=== PATIENT | female | born 1965 | race African-American/Black ===

== ENCOUNTER 2017-04-19 20:20 | Emergency (ER) | payer OTHER ==
--- NOTE | 2017-04-19 20:25 | PDOC ---
Rapid Medical Evaluation Chief Complaint: Shortness of Breath Time Seen by Provider: 04/19/17 20:22 Medical Evaluation: 04/19/17 20:23 pt c/o: recent URI, now cough and congestion x 1 week, no fever, upper mid chest tightness, had ekg done at dr office which was -. Pt on brief exam: beatriz MENDOZA Pt ordered for : ekg pt to proceed to the ED: Discharge Disposition - Diagnosis Shortness of breath - Referrals - Patient Instructions - Post Discharge Activity
[2017-04-19 20:26] VITALS: BP 136/84; PULSE 88; TEMP 99; BMI 28.5
--- NOTE | 2017-04-19 20:39 | PDOC ---
History of Present Illness - General History Source: Patient Exam Limitations: No Limitations - History of Present Illness Initial Comments: 04/19/17 21:04 The patient is a 51 year old female, with a significant past medical history of thyroidectomy, who presents to the emergency department with, chest tightness and shortness of breath. The patient reports she had a cold for the past 3 weeks and after recovering from the cold began to experience a gradual onset of chest tightness and shortness of breath. The patient reports she has not been taking her thyroid medications and believes that may be contributing to the shortness of breath. The patient also reports she has a productive cough with white cream colored sputum. The patient reports she visited her PMD Dr. Millan on Sunday who advised her to come to the ED for evaluation. The patient reports she did not come to the ED on Sunday but decided to come today as her symptoms have been feeling worse. The patient reports she had an EKG performed at her PCP office and states the EKG was normal. She denies recent palpitations or chest pain. She denies recent calf tenderness or swelling. She denies recent fevers, chills, headache or dizziness. She denies recent nausea, vomit, diarrhea or constipation. She denies recent dysuria , frequency, urgency or hematuria. Allergies: NKA Past surgical history: Thyroidectomy Primary Care Physician: Dr. Millan <Malachi Crocker - Last Filed: 04/19/17 21:04> <Ericka Keller - Last Filed: 04/19/17 23:27> - General Chief Complaint: Shortness of Breath Stated Complaint: SHORTNESS OF BREATH Time Seen by Provider: 04/19/17 20:22 Past History <Malachi Crocker - Last Filed: 04/19/17 21:04> - Past Medical History COPD: No DVT: No Dementia: No Seizures: Yes (hyper) - Immunization History Immunization Up to Date: Yes - Suicide/Smoking/Psychosocial Hx Smoking History: Never smoked Have you smoked in the past 12 months: No Information on smoking cessation initiated: No Hx Alcohol Use: No Drug/Substance Use Hx: No Substance Use Type: None <Ericka Keller - Last Filed: 04/19/17 23:27> - Past Medical History Allergies/Adverse Reactions: Allergies Allergy/AdvReac Type Severity Reaction Status Date / Time No Known Allergies Allergy Verified 04/19/17 20:26 Home Medications: Ambulatory Orders Albuterol Sulfate Inhaler - [Ventolin HFA Inhaler -] 1 - 2 inh PO Q4H PRN #1 inhaler 04/19/17 predniSONE [Deltasone -] 20 mg PO DAILY #4 tablet 04/19/17 Review of Systems - Review of Systems Comments:: 04/19/17 21:05 GENERAL/CONSTITUTIONAL: No fever or chills. No weakness. HEAD, EYES, EARS, NOSE AND THROAT: No change in vision. No ear pain or discharge. No sore throat. GASTROINTESTINAL: No nausea, vomiting, diarrhea or constipation. GENITOURINARY: No dysuria, frequency, or change in urination. CARDIOVASCULAR: +Chest tightness. No chest pain. RESPIRATORY: +Shortness of breath. +Productive cough. No wheezing, or hemoptysis. MUSCULOSKELETAL: No joint or muscle swelling or pain. No neck or back pain. SKIN: No rash NEUROLOGIC: No headache, vertigo, loss of consciousness, or change in strength/ sensation. ENDOCRINE: No increased thirst. No abnormal weight change. HEMATOLOGIC/LYMPHATIC: No anemia, easy bleeding, or history of blood clots. ALLERGIC/IMMUNOLOGIC: No hives or skin allergy. <Malachi Crocker - Last Filed: 04/19/17 21:04> *Physical Exam - Vital Signs Last Vital Signs Temp Pulse Resp BP Pulse Ox 99.0 F 88 18 136/84 100 04/19/17 20:23 04/19/17 20:23 04/19/17 20:23 04/19/17 20:23 04/19/17 20:23 - Physical Exam Comments: 04/19/17 21:05 Constitutional: Non toxic appearing. Awake, alert, oriented. No acute distress. Head: Normocephalic. Atraumatic. Eyes: PERRL. EOMI. Conjunctivae are not pale. ENT: Mucous membranes are moist and intact. Posterior pharynx without exudates or erythema. Uvula midline. Neck: Healed thyroid surgical incision. Supple. Full ROM. No lymphadenopathy. Cardiovascular: Regular rate. Regular rhythm. S1, S2 regular. Distal pulses are 2+ and symmetric. Pulmonary/Chest: +Diminished breath sounds bilaterally. No wheezing, rales or rhonchi. Abdominal: Soft and non-distended. There is no tenderness. No rebound, guarding or rigidity. No organomegaly. No palpable masses. Good bowel sounds. Back: No CVA tenderness. Musculoskeletal: No edema. No cyanosis. No clubbing. Full range of motion in all extremities. No calf tenderness. Radial/pedal pulses are intact and 2+ bilaterally Skin: Skin is warm and dry. No petechiae. No purpura. Neurological: Alert and oriented to person, place, and time. Cranial nerves II -XII are grossly intact. Normal speech. Strength is grossly symmetric. No sensory deficits. Psychiatric: Good eye contact. Normal interaction, affect and behavior. <Malachi Crocker - Last Filed: 04/19/17 21:04> - Vital Signs Last Vital Signs Temp Pulse Resp BP Pulse Ox 99.0 F 88 18 136/84 100 04/19/17 20:23 04/19/17 20:23 04/19/17 20:23 04/19/17 20:23 04/19/17 20:23 <Ericka Keller - Last Filed: 04/19/17 23:27> Heart Score/ECG Review - ECG Intrepretation Comment:: 04/19/17 21:01 sinus at 78, nl axis, nl interval, no acute st/t wave findings <Ericka Keller - Last Filed: 04/19/17 23:27> ED Treatment Course - Medications Given in the ED: ED Medications Discontinued Medications Generic Name Dose Route Start Last Admin Trade Name Freq PRN Reason Stop Dose Admin Albuterol/Ipratropium 1 amp 04/19/17 20:51 04/19/17 20:56 Duoneb - NEB 04/19/17 20:52 1 amp ONCE ONE Administration Sodium Chloride 1,000 ml 04/19/17 20:51 04/19/17 20:56 Normal Saline - IV 04/19/17 20:52 1,000 ml ONCE ONE Administration <Malachi Crocker - Last Filed: 04/19/17 21:04> - LABORATORY CBC & Chemistry Diagram: 04/19/17 21:15 04/19/17 21:15 <Ericka Keller - Last Filed: 04/19/17 23:27> Medical Decision Making - Medical Decision Making 04/19/17 20:58 51yo female presents ambulatory for chest tightness x 2 weeks -had viral uri for 3 weeks prior to chest tightness -still with cough - productive white sputum -no fevers -states difficulty breathing -diminished bs on exam, suspect reactive airway disease after recent viral URI -will check labs, ekg, cxr -nebs, ivf hydration, monitor and reasssess -ucg 04/19/17 23:23 re-eval cxr negative pt feeling better labs reviewed lungs cta on exam will give inhaler and steroids to help with RAD pt has appt with PMD for next sunday discussed all reasons to return to the Ed and need for follow up with PMD. Pt stable for d/c to home. <Ericka Keller - Last Filed: 04/19/17 23:27> *DC/Admit/Observation/Transfer - Attestations Scribe Attestion: 04/19/17 21:06 Documentation prepared by Malachi Crocker, acting as medical office assistant for Ericka Keller DO. <Malachi Crocker - Last Filed: 04/19/17 21:04> - Discharge Dispostion Admit: No - Attestations Physician Attestion: 04/19/17 23:27 I, Dr. Ericka Keller DO, attest that this document has been prepared under my direction and personally reviewed by me in its entirety. I further attest, that it accurately reflects all work, treatment, procedures and medical decision -making performed by me. <Ericka Keller - Last Filed: 04/19/17 23:27> Diagnosis at time of Disposition: Reactive airway disease - Discharge Dispostion Disposition: HOME Condition at time of disposition: Stable - Prescriptions Prescriptions: Albuterol Sulfate Inhaler - [Ventolin HFA Inhaler -] 1 - 2 inh PO Q4H PRN #1 inhaler PRN Reason: Short Of Breath/Wheezing predniSONE [Deltasone -] 20 mg PO DAILY #4 tablet - Referrals Referrals: Danny Agosto [Non Staff, Medical] - - Patient Instructions Printed Discharge Instructions: DI for Reactive Airway Disease-Adult Additional Instructions: Please take all meds as prescribed. Please keep your appointment with your PMD. Please return to the ED with any further complaints.
[2017-04-19] MEDS ORDERED: ALBUTEROL SO4 2.5/IPRATROPIUM 0.5 INH SOL 3 ML VIAL.NEB. NEB ONE ×2 (20:51→23:20)
[2017-04-19] MEDS ORDERED: SODIUM CHLORIDE 0.9% 1000 ML INFUS.BAG IV ONE (20:51)
[2017-04-19] MEDS ORDERED: ACETAMINOPHEN 325 MG TABLET (FP) PO ONE (21:01)
[2017-04-19] MEDS ORDERED: predniSONE 20 MG TABLET (UD) PO ONE (21:01)
[2017-04-19 21:27] LABS: BASO % 2.2 % (0-2.0); HEMATOCRIT 36.3 % (32.4-45.2); HEMOGLOBIN 12.2 GM/dL (10.7-15.3); LYMPH % 47.7 % (8-40); MCH 30.8 pg (25.7-33.7); MCHC 33.6 g/dl (32.0-36.0); MEAN CELL VOLUME 91.5 fl (80-96); MEAN PLT VOLUME 8.7 fl (7.5-11.1); MONO % 6.2 % (3.8-10.2); NEUT % 41.9 % (42.8-82.8); PLATELET COUNT 243 K/MM3 (134-434); RBC 3.97 M/mm3 (3.60-5.2); WHITE BLOOD COUNT 5.6 K/mm3 (4.0-10.0)
[2017-04-19 22:01] LABS: ANION GAP 8 (8-16); BILIRUBIN,TOTAL 0.4 mg/dL (0.2-1.0); BLOOD UREA NITROGEN 9 mg/dL (7-18); CALCIUM 8.3 mg/dL (8.5-10.1); CHLORIDE 104 mmol/L (98-107); CO2 25 mmol/L (21-32); CREATININE 0.7 mg/dL (0.55-1.02); GLUCOSE,RANDOM 90 mg/dL (74-106); POTASSIUM 3.9 mmol/L (3.5-5.1); SGOT/AST 19 U/L (15-37); SGPT/ALT 23 U/L (12-78); SODIUM 137 mmol/L (136-145); TOT PROT 7.8 g/dl (6.4-8.2)
[2017-04-19 22:09] LABS: ALK PHOS 63 U/L (45-117)
--- NOTE | 2017-04-21 12:17 | EKG ---
Test Reason : Blood Pressure : / mmHG Vent. Rate : 078 BPM Atrial Rate : 078 BPM P-R Int : 192 ms QRS Dur : 088 ms QT Int : 370 ms P-R-T Axes : 066 059 056 degrees QTc Int : 421 ms NORMAL SINUS RHYTHM POSSIBLE LEFT ATRIAL ENLARGEMENT BORDERLINE ECG WHEN COMPARED WITH ECG OF 28-APR-2009 09:25, OR INTERVAL HAS DECREASED Confirmed by ISABEL COOPER MD ([id number]) on 04/21/2017 12:17:41 PM Referred By: Confirmed By:ISABEL COOPER MD
== END 2017-04-19 23:45 | disposition home or self-care (01) ==
LOC: JER 20:20
PROC: 3E0F7GC Introduction of Other Therapeutic Substance into Respiratory Tract, Via Natural or Artificial Opening (ICD-10-PCS; principal; 2017-04-19)
PROC: 3E0F7GC Introduction of Other Therapeutic Substance into Respiratory Tract, Via Natural or Artificial Opening (ICD-10-PCS; 2017-04-19)
DX: J45.909 Unspecified asthma, uncomplicated (principal)
CPT/HCPCS: 36415; 71046-TC-FY; 80053; 82550; 82553; 84443; 84484; 84703; 85025; 93005; 93010; 99282-25

== ENCOUNTER → 2017-04-19 | Emergency (ER) | payer BC, OTHER ==
[~2017-04-19] MED LIST: ACETAMINOPHEN 325 MG TABLET (FP) ONE; ALBUTEROL SO4 2.5/IPRATROPIUM 0.5 INH SOL 3 ML VIAL.NEB. NEB ONE; predniSONE 10 MG TABLET (UD) ONE
[2017-04-19 18:09] VITALS: BP 125/67; PULSE 70; TEMP 98.2; BMI 28.5
--- NOTE | 2017-04-19 18:09 | PDOC ---
Rapid Medical Evaluation Time Seen by Provider: 04/19/17 18:05 Medical Evaluation: 04/19/17 18:06 pt c/o: recent URI, now cough and congestion x 1 week, no fever, no chest pain Pt on brief exam: LCTA, vss Pt ordered for : none pt to proceed to the ED: Discharge Disposition - Diagnosis Cough - Referrals - Patient Instructions - Post Discharge Activity
== END | disposition left against medical advice (07) ==
LOC: JER 16:50 → JERFT 16:50
DX: Z53.21 Procedure and treatment not carried out due to patient leaving prior to being seen by health care provider (principal)
CPT/HCPCS: 99281-25

== ENCOUNTER 2018-12-18 14:30 | Emergency (ER) | payer OTHER ==
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
[2018-12-18 14:39] VITALS: BP 126/73; PULSE 80; TEMP 98.9; BMI 29.6
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
== END 2018-12-18 16:15 | disposition home or self-care (01) ==
LOC: JERFT 14:30
DX: M54.16 Radiculopathy, lumbar region (principal); V43.52XA Car driver injured in collision with other type car in traffic accident, initial encounter; Y93.89 Activity, other specified; Y92.410 Unspecified street and highway as the place of occurrence of the external cause; E03.9 Hypothyroidism, unspecified; R56.9 Unspecified convulsions
CPT/HCPCS: 99281-25